=== PATIENT | male | born 1970 | race Caucasian/White ===

== ENCOUNTER 2018-11-23 17:40 | Emergency (ER) | payer MEDICAID ==
[~2018-11-23] VITALS: Ht 175.3 cm; Wt 99.8 kg
[2018-11-23 17:52] VITALS: BP 215/88
[2018-11-23] MEDS ORDERED: cloNIDine HCL 0.1 MG TAB PO ONE (18:00)
[2018-11-23 19:01] LABS: Basophils # (auto) 0 uL; Basophils % (auto) 0.3 % (0.0-2.0); Eosinophils # (auto) 0.3 uL; Eosinophils % (auto) 1.8 % (0.0-7.0); Hematocrit 50.4 % (41.0-53.0); Hemoglobin 17.2 g/dL (13.5-17.5); Lymphocytes # (auto) 2.4 uL; Lymphocytes % (auto) 16.6 % (10.0-50.0); Mean Corpuscular Hemoglobin 30.8 pg (28.0-32.0); Mean Corpuscular Hgb Conc. 34.2 g/dL (32.0-36.0); Mean Corpuscular Volume 90.1 fL (80.0-100.0); Monocytes # (auto) 1.4 uL; Monocytes % (auto) 9.7 % (0.0-12.0); Neutrophils # (auto) 10.5 uL; Neutrophils % (auto) 71.6 % (37.0-80.0); Nucleated Red Blood Cells % 0.1 %; Platelet Count (auto) 263 10^3/uL (140-450); Red Blood Cells 5.59 10^6/uL (4.5-5.90); Red Cell Distribution Width 13.3 % (11.8-14.3); White Blood Cell 14.6 10^3/uL (4.4-10.8)
[2018-11-23 19:09] LABS: Urine Bacteria NONE SEEN /hpf (None Seen); Urine Blood 1+ /uL (Negative); Urine Mucus FEW (None Seen); Urine Specific Gravity 1.014 (1.001-1.035); Urine WBC 1 /hpf (0 - 3)
[2018-11-23 19:17] LABS: Albumin 4.4 g/dL (3.4-5.0); Calcium 9.5 mg/dL (8.5-10.1); Potassium 4.4 mmol/L (3.5-5.1)
[2018-11-23 19:21] LABS: BUN/Creatinine Ratio 12.6; Total Protein 8.1 g/dL (6.4-8.2)
== END 2018-11-23 23:00 | disposition left against medical advice (07) ==
LOC: EDUNIT# 17:40 → EDBD 17:40 → ER 17:43
DX: M54.9 Dorsalgia, unspecified (principal); R30.0 Dysuria; Z53.21 Procedure and treatment not carried out due to patient leaving prior to being seen by health care provider
CPT/HCPCS: 36415; 74176; 80053; 81001; 85025

== ENCOUNTER 2020-06-05 09:45 | Inpatient (IN) | payer MEDICAID ==
[~2020-06-05] VITALS: Ht 175.3 cm; Wt 98.4 kg
[2020-06-05] MEDS ORDERED: cloNIDine HCL 0.1 MG TAB PO ONE ×2 (10:30→17:30)
[2020-06-05 11:23] LABS: Urine Bacteria FEW /hpf (None Seen); Urine Blood TRACE /uL (Negative); Urine Specific Gravity 1.012 (1.001-1.035); Urine WBC 3 /hpf (0 - 3)
[2020-06-05] MEDS ORDERED: methylPREDNISolone SOD SUCC 125 MG/2 ML VL IM ONE (12:45)
[2020-06-05] MEDS ORDERED: KETOROLAC TROMETH 60MG/2ML VIAL IM ONE (12:45)
[2020-06-05] MEDS ORDERED: METHOCARBAMOL 500 MG TAB PO ONE (12:45)
[2020-06-05] MEDS ORDERED: SODIUM CHLORIDE 0.9% 1,000 ML IV ONE (13:00)
[2020-06-05] MEDS ORDERED: KETOROLAC TROMETH 30 MG/ML 1ML VIAL IV ONE (13:15)
[2020-06-05] MEDS ORDERED: methylPREDNISolone SOD SUCC 125 MG/2 ML VL IV ONE (13:15)
[2020-06-05] MEDS ORDERED: PROMETHAZINE HCL 25 MG/ML 1ML IV ONE (13:15)
[2020-06-05 15:10] LABS: Basophils # (auto) 0 10 ^3/uL (0-0.2); Basophils % (auto) 0.3 % (0.0-2.0); Eosinophils # (auto) 0.1 10 ^3/uL (0-0.8); Eosinophils % (auto) 0.6 % (0.0-7.0); Hematocrit 49.9 % (41.0-53.0); Hemoglobin 16.8 g/dL (13.5-17.5); Lymphocytes # (auto) 1.3 10 ^3/uL (0.4-5.4); Lymphocytes % (auto) 9.2 % (10.0-50.0); Mean Corpuscular Hemoglobin 30.2 pg (28.0-32.0); Mean Corpuscular Hgb Conc. 33.6 g/dL (32.0-36.0); Monocytes # (auto) 0.7 10 ^3/uL (0-1.3); Monocytes % (auto) 5.3 % (0.0-12.0); Neutrophils # (auto) 11.7 10 ^3/uL (1.6-8.6); Neutrophils % (auto) 84.6 % (37.0-80.0); Platelet Count (auto) 226 10^3/uL (140-450); Red Blood Cells 5.55 10^6/uL (4.5-5.90); White Blood Cell 13.8 10^3/uL (4.4-10.8)
[2020-06-05 15:25] LABS: Albumin 3.5 g/dL (3.4-5.0); Calcium 8.9 mg/dL (8.5-10.1); Potassium 3.6 mmol/L (3.5-5.1)
[2020-06-05 15:29] LABS: BUN/Creatinine Ratio 12.6; Bilirubin, Total 1.3 mg/dL (0.2-1.0); Total Protein 7.4 g/dL (6.4-8.2)
[2020-06-05] MEDS ORDERED: LABETALOL INJECTION 250 MG in SODIUM CHL 0.9% 200 ML IV ONE ×2 (18:30→19:00)
[2020-06-05] MEDS ORDERED: LORazepam 0.5 MG TAB PO PRN (21:15)
[2020-06-05] MEDS ORDERED: HYDROcodone-ACET 5/325MG TAB PO PRN (21:15)
[2020-06-05] MEDS ORDERED: MORPHINE SULF INJ 2 MG/ML SYRINGE 1ML IV PRN ×2 (21:15)
[2020-06-05] MEDS ORDERED: HYDROmorphone HCL 2 MG/ML VL IV PRN (21:15)
[2020-06-05] MEDS ORDERED: METOCLOPRAMIDE HCL 5MG/ml INJ 2ml VIAL IV PRN (21:15)
[2020-06-05] MEDS ORDERED: ACETAMINOPHEN 325 MG TAB PO PRN (21:15)
[2020-06-05] MEDS ORDERED: NITROGLYCERIN 0.4 MG SL TAB SL PRN (21:15)
[2020-06-05] MEDS: SODIUM CHLOR 0.9% PF (SALINE LOCK) 10ML VIAL/SYR IV SCH (22:00)
[2020-06-06] VITALS (8 sets, daily range): BP systolic 137–167; BP diastolic 93–106
[2020-06-06] MEDS: SODIUM CHLOR 0.9% PF (SALINE LOCK) 10ML VIAL/SYR IV SCH ×2 (05:59→14:00)
[2020-06-06 10:01] LABS: Basophils # (auto) 0 10 ^3/uL (0-0.2); Basophils % (auto) 0.1 % (0.0-2.0); Eosinophils # (auto) 0 10 ^3/uL (0-0.8); Hematocrit 47.2 % (41.0-53.0); Lymphocytes # (auto) 1.8 10 ^3/uL (0.4-5.4); Lymphocytes % (auto) 10.3 % (10.0-50.0); Mean Corpuscular Hemoglobin 30.2 pg (28.0-32.0); Mean Corpuscular Hgb Conc. 33.9 g/dL (32.0-36.0); Monocytes # (auto) 1.8 10 ^3/uL (0-1.3); Monocytes % (auto) 10.3 % (0.0-12.0); Neutrophils # (auto) 14.2 10 ^3/uL (1.6-8.6); Neutrophils % (auto) 79.3 % (37.0-80.0); Platelet Count (auto) 279 10^3/uL (140-450); Red Cell Distribution Width 12.8 % (11.8-14.3); White Blood Cell 17.9 10^3/uL (4.4-10.8)
[2020-06-06 10:25] LABS: Albumin 3.7 g/dL (3.4-5.0); Calcium 9.6 mg/dL (8.5-10.1); Magnesium 2.7 mg/dL (1.6-2.6); Potassium 3.9 mmol/L (3.5-5.1)
[2020-06-06 10:30] LABS: BUN/Creatinine Ratio 17.2; Bilirubin, Total 1.2 mg/dL (0.2-1.0); Total Protein 7.6 g/dL (6.4-8.2)
--- NOTE | 2020-06-06 10:40 | NUR ---
MS/TELE admit from ER, TO PACU BED 6 as a ER hold after SBAR received from Ming RUIZ from ER. Patient oriented to MICAELA ESCUDERO, primary RN, policies regarding patient care and acknowledged NO visitors at this time. All questions and concerns addressed, patient verbalized understanding. Will continue to monitor.
--- NOTE | 2020-06-06 15:08 | NUR ---
Report provided in detail to Sofia Márquez RN, aware of pages out to both aury GALVAN's.
--- NOTE | 2020-06-06 15:30 | NUR ---
Telemetry admit from RASHARD ATKINS admitted to Telemetry unit after SBAR received. Patient oriented to Sofia walsh RN, unit, room, bed, and unit policies regarding patient care and visiting hours. Patient now on continuous telemetry monitoring, tele box #[id number] and telemetry reading on arrival to unit is sinus rhythm. Patient weighed by bedscale and encouraged to call if they need something. All questions and concerns addressed, patient verbalized understanding.
--- NOTE | 2020-06-06 16:11 | NUR ---
PAGED PAGE OUT TO DR RAHMAN REGARDING ELEVATED BP OF 160/104 AND LACK OF PRN MEDICATIONS ORDERED. AWAITING CALL BACK.
[2020-06-06] MEDS: amLODIPine BESYLATE 5 MG TAB PO SCH (19:00)
[2020-06-07] MEDS: SODIUM CHLOR 0.9% PF (SALINE LOCK) 10ML VIAL/SYR IV SCH ×3 (01:59→14:00)
[2020-06-07] MEDS: hydrALAZINE HCL 20 MG/ML VL IV SCH ×4 (02:00→09:51)
[2020-06-07] MEDS: SOD CHL 0.45% 1,000 ML IV SCH ×3 (03:42→15:42)
[2020-06-07 05:00] VITALS: BP 157/99
--- NOTE | 2020-06-07 06:53 | NUR ---
PT RESTED WELL THROUGHOUT THE NIGHT;NO C/O PAIN;VSS;WILL CONTINUE TO MONITOR.
--- NOTE | 2020-06-07 07:25 | NUR ---
Opening Shift Note: Assumed care of patient. Patient asleep at this time. No S/S of distress/SOB or pain. Bed in lowest locked position, side rails up x2, call light within reach. Patient will be instructed on POC and to call for assist PRN, will continue to monitor for changes Q1hr and PRN.
[2020-06-07 07:50] LABS: Basophils # (auto) 0.1 10 ^3/uL (0-0.2); Basophils % (auto) 0.4 % (0.0-2.0); Eosinophils # (auto) 0.2 10 ^3/uL (0-0.8); Eosinophils % (auto) 1.7 % (0.0-7.0); Hematocrit 46.4 % (41.0-53.0); Hemoglobin 15.9 g/dL (13.5-17.5); Lymphocytes # (auto) 2.5 10 ^3/uL (0.4-5.4); Lymphocytes % (auto) 19.7 % (10.0-50.0); Mean Corpuscular Hemoglobin 30.1 pg (28.0-32.0); Mean Corpuscular Hgb Conc. 34.2 g/dL (32.0-36.0); Mean Corpuscular Volume 88.2 fL (80.0-100.0); Monocytes # (auto) 1.2 10 ^3/uL (0-1.3); Monocytes % (auto) 9.7 % (0.0-12.0); Neutrophils # (auto) 8.6 10 ^3/uL (1.6-8.6); Neutrophils % (auto) 68.5 % (37.0-80.0); Nucleated Red Blood Cells % 0.2 %; Platelet Count (auto) 241 10^3/uL (140-450); Red Blood Cells 5.26 10^6/uL (4.5-5.90); Red Cell Distribution Width 12.8 % (11.8-14.3); White Blood Cell 12.6 10^3/uL (4.4-10.8)
[2020-06-07 08:00] LABS: Calcium 9.2 mg/dL (8.5-10.1); Magnesium 2.4 mg/dL (1.6-2.6); Potassium 3.3 mmol/L (3.5-5.1)
[2020-06-07 08:02] LABS: BUN/Creatinine Ratio 23.4
[2020-06-07 09:03] VITALS: BP 149/82
--- NOTE | 2020-06-07 09:47 | NUR ---
Right AC IV began to leak. Patient refused new IV start at this time. patient educated on need for IV at this time. Patient still refusing. IV hydralazine held at this time.
[2020-06-07] MEDS: amLODIPine BESYLATE 5 MG TAB PO SCH (09:48)
[2020-06-07 12:30] VITALS: BP 135/93
[2020-06-07] MEDS ORDERED: amLODIPine BESYLATE 5 MG TAB PO SCH (12:30)
--- NOTE | 2020-06-07 14:02 | NUR ---
PATIENT STILL REFUSING IV START AT THIS TIME.
[2020-06-07 16:49] VITALS: BP 154/91
--- NOTE | 2020-06-07 17:01 | NUR ---
AMA Note: RASHARD SANTIAGO states they want to leave the hospital Against Medical Advice (AMA). Patient encouraged to stay for further treatment/stabilization. Dr. Sánchez notified of patient's wishes. Patient advised of the risks and benefits of leaving AMA. Patient verbalized understanding. Patient encouraged to return to the ER if symptoms do not improve or worsen. IV and tele box removed from patient.
[2020-06-08] MEDS ORDERED: LISINOPRIL 5 MG TAB PO SCH (10:00)
== END 2020-06-07 17:00 | disposition left against medical advice (07) | DRG 199 ==
LOC: ER 09:45 → TELE 09:46 → TELE-WESTW 06-06 15:47
PROVIDERS: ADMIT Internal Medicine; ATTEND Internal Medicine
DX: I16.0 Hypertensive urgency (principal); D72.828 Other elevated white blood cell count; N17.9 Acute kidney failure, unspecified; M54.5 Low back pain; I10 Essential (primary) hypertension; F17.210 Nicotine dependence, cigarettes, uncomplicated; Z53.29 Procedure and treatment not carried out because of patient's decision for other reasons; Z83.3 Family history of diabetes mellitus; Z82.49 Family history of ischemic heart disease and other diseases of the circulatory system; Z87.442 Personal history of urinary calculi; Z71.6 Tobacco abuse counseling
CPT/HCPCS: 36415; 70450; 71045; 72110; 80048; 80053; 81001; 83036; 83735; 84443; 85025; 93005; 93306; G0378